=== PATIENT | female | born 1970 | race African-American/Black ===

== ENCOUNTER 2023-11-24 09:03 | Emergency (ER) | payer BC, SELFPAY ==
--- NOTE | ~2023-11-24 | XR_ITS ---
EXAMINATION: XR chest 2V DATE: 11/24/2023 09:54 INDICATION: Right upper and mid back pain. TECHNIQUE: Frontal and lateral views of the chest were obtained. COMPARISON: None. FINDINGS: There is no pneumonia, pleural effusion, or pneumothorax. The heart size is normal. IMPRESSION: 1. No acute cardiopulmonary disease. Reviewed, dictated and finalized at location A.
[2023-11-24 09:18] VITALS: BP 189/107; PULSE 82; RESP 20; TEMP 36.7; O2SAT 98
--- NOTE | 2023-11-24 09:30 | ED.BACK ---
HPI - Back Pain/Injury General Chief Complaint: Back Pain/Injury Stated Complaint: back pain/blood pressure Time Seen by Provider: 11/24/23 09:30 Source: patient, RN notes reviewed and old records reviewed Mode of arrival: ambulatory Limitations: no limitations History of Present Illness HPI Narrative: 53 year old female who presents to [facility] care with complaints of right thoracic back pain for the past 4 days which does radiate around right side to abdomen at times. Patient reports that she thought was gas at first but constant level of pain to right thoracic area which has palpable tenderness. Patient reports that her blood pressure is elevated had previously been on blood pressure medication but is out of medication for awhile. Patient reports that she is from [place] and came to [facility] to take care of mother then she passed. Patient reports that she has been traveling back and forth lately to [place] and back to [facility] since mother passed. Patient reports no known injury to her thoracic back area.Patient states that she has been taking Aleve and Ibuprofen for her discomfort. Patient reports that she has no shortness of breath or any chest pain or palpitations. MD elicited complaint: back pain (thoracic) Onset (ago): day(s) (4) Pain scale (0-10): 9 Location: thoracic spine (right thoracic area) Radiation: abdomen (to right upper abdomen) Treatments prior to arrival: NSAIDS and other (Aleve) Related Data Allergies Allergy/AdvReac Type Severity Reaction Status Date / Time No Known Allergies Allergy Verified 11/24/23 09:18 Review of Systems Review of Systems: CONSTITUTIONAL: Denies fever, chills, or sweats. CARDIOVASCULAR: Denies chest pain, palpitations, or edema. RESPIRATORY: Denies cough or dyspnea. GASTROINTESTINAL: some radiated pain to right upper abdominal area, no nausea, vomiting, or diarrhea. GENITOURINARY: Denies dysuria or hematuria. SKIN: Denies rash or itching. MUSCULOSKELETAL: Reports right upper thoracic back pain. no other joint pain or myalgia. NEUROLOGIC: Denies headache, numbness, or weakness. All systems reviewed & are unremarkable except as noted in HPI and below PMFSH Past Medical History Medical History (Updated 11/25/23 @ 09:25 by Marsha Orourke NP) Hypertension Social History Social History (Updated 11/25/23 @ 09:31 by Marsha L. Sharad, RESEARCH KENNEL SUPERVISOR) Smoking status: Never smoker Alcohol intake: current Alcohol use details: social Substance use type: does not use Gender identity (if verbalized by the patient): Female Comments At time of signature, agree with nursing past medical, surgical, social and family history. There is no relevant family history pertinent to the presenting complaint Exam Narrative: GENERAL: Well-appearing, well-nourished, obese and in no acute distress. HEAD: Normocephalic, atraumatic. EYES: PERRLA and EOMI. NECK: Supple. No lymphadenopathy. CHEST: Clear to auscultation. No respiratory distress. no cough noted SAO2 98% on room air, denies any increased pain with deep breathing HEART: Regular rate and rhythm. Distal pulses palpable and equal, cap refill <3 seconds ABDOMEN: Soft, nontender, nondistended, normal active bowel sounds, no palpable or pulsatile masses. No CVA tenderness MUSCULOSKELETAL: Normal range of motion and strength in all extremities; 5/5 strength with hip flexion and extension, dorsiflexion and extension, knee flexion and extension, plantar flexion and extension. Normal sensation in dermatomal distributions with sensitivity to light touch and pain. No midline back tenderness to palpation. No paraspinal tenderness. Transfers from lying to sitting to standing.Palpable area of tenderness to right thoracic back area under inner scapula area SKIN: Warm, dry, no rash. No ecchymosis, erythema, open wounds to back. NEURO: No focal deficits. Alert and oriented x3. Reflexes intact. Normal gait. PSYCH: Normal mood and affect Course Cour
== END 2023-11-24 10:36 | disposition home or self-care (01) ==
PROVIDERS: Emergency Provider Registered Nurse
DX: I10 Essential (primary) hypertension (principal); M54.6 Pain in thoracic spine
CPT/HCPCS: 71046; 99203; G0463

== ENCOUNTER 2024-02-08 14:02 | Emergency (ER) | payer BC, SELFPAY ==
[2024-02-08 14:10] VITALS: BP 159/80; PULSE 93; RESP 22; TEMP 36.7; O2SAT 98
[2024-02-08 14:49] LABS: EDUAAPPEAR Clear; EDUABILI 1+ (Negative); EDUABLOOD Negative (Negative); EDUACOLOR1 Dark; EDUAGLUCOSE Negative (Negative); EDUAKETONE 2+ (Negative); EDUALEUKO Negative (Negative); EDUANITRATE Negative (Negative); EDUAPROTEIN Negative (Negative); EDUAUROBILI 0.2
--- NOTE | 2024-02-08 15:08 | ED.GENADULT ---
HPI - General Adult General Chief complaint: Urogenital-Female Stated complaint: Urinary /abdominal pain Time Seen by Provider: 02/08/24 15:14 Source: patient, RN notes reviewed and old records reviewed Mode of arrival: ambulatory Limitations: no limitations History of Present Illness HPI narrative: 53-year-old female to Express Care with complaint of dark urine intermittently over the past 2 days. Patient also endorsing upper abdominal cramping. Patient denies abdominal pain, nausea, vomiting, flank pain, urinary frequency, urgency, incontinence, dysuria, bowel changes. patient states that her cycles are irregular as she is premenopausal. Patient hypertensive and tachypneic in triage. Endorses history of hypertension, states she has visiting from out of state due to her mother's recent passing. Patient states that she is out of her hypertension medications, requesting refill of possible. patient resting comfortably in exam room in no acute distress. Respirations even and nonlabored. Patient able to tolerate fluids by mouth. Related Data Allergies Allergy/AdvReac Type Severity Reaction Status Date / Time No Known Allergies Allergy Verified 02/08/24 14:46 Review of Systems Review of Systems: All systems reviewed & are unremarkable except as noted in HPI and below Constitutional: Constitutional: Reports no additional constitutional complaints Eyes: Eyes: Reports no additional eye complaints ENT: Reports system reviewed and no additional complaints, except as documented Cardiovascular: Cardiovascular: Reports no additional cardiovascular complaints, Denies chest pain and Denies dyspnea Respiratory: Respiratory: Reports no additional respiratory complaints, Denies cough and Denies dyspnea Gastrointestinal: Gastrointestinal: Denies abdominal pain, Reports GI cramping ( Upper abdominal), Denies diarrhea, Denies nausea and Denies vomiting Genitourinary: Genitourinary: Reports as per HPI, Reports abnormal menses, Denies urinary frequency, Denies post void dribbling, Denies nocturia, Denies dysuria, Denies flank pain, Denies urinary incontinence, Denies urinary hesitancy and Denies urinary urgency Musculoskeletal: Musculoskeletal: Reports no additional musculoskeletal complaints Neurologic: Reports system reviewed and no additional complaints, except as documented Psychiatric: Psychiatric: Reports no additional psychiatric complaints [facility] Past Medical History Medical History Hypertension Social History Social History Smoking status: Never smoker Alcohol intake: current Alcohol use details: social Substance use type: does not use Gender identity (if verbalized by the patient): Female Comments At the time of my signature, I reviewed and agree with the nursing past medical, surgical, social, and family history. There is no relevant family history pertinent to the patient complaint. Exam Const: General: cooperative, healthy appearing, comfortable, no acute distress, alert and well nourished Nutritional Appearance: well nourished Orientation/consciousness: patient oriented x3 Limitations: no limitations HENMT: Head: normal to inspection Ears: external ears normal Face/Nose/Sinus: Normal external nose present, Normal nares present, normal facial exam, No erythema and No edema Face and sinus: normal facial exam, no erythema and no edema Mouth: Yes Normal oral and palatal mucosa present Eyes: General: appearance normal, both eyes and all related structures Neck: Neck: normal visual inspection, full ROM and no meningeal signs Lymphatic: no lymphadenopathy noted and no lymphedema noted Chest: Chest palpation & inspection: normal inspection of the chest Resp: Effort & Inspection: normal respiratory effort and able to speak in complete sentences Auscultation: clear to auscultation bilaterally Cardio: Jugular venous distension: no JVD Rate: regular rate Rhythm: regular rhythm Back/Spine/Pelvis: Cervical Spine: cervical ROM normal Skin: General skin exam: normal color, no rashes or lesions noted and turgor normal Neuro: General: patient oriented x3, gait normal, moves all extremities and no meningeal signs Speech: normal speech Gait exam (Neuro): Normal gait present Extrem: General: normal to inspection, full ROM and capillary refill normal Psych: Appearance: grossly normal and well kempt Course Course Emergency Course: Some parts of this dictation were generated by voice recognition software and may contain typographical and/or grammatical inaccuracies. Level of Care: Express Care Visit Vital Signs Vital signs: Vital Signs Temperature 36.7 C 02/08/24 14:10 Pulse Rate 93 02/08/24 14:10 Respiratory Rate 22 H 02/08/24 14:10 Blood Pressure 159/80 H 02/08/24 14:10 Pulse Oximetry 98 02/08/24 14:10 Oxygen Delivery Room Air 02/08/24 14:10 Temperature 36.7 C 02/08/24 14:10 Pulse Rate 93 02/08/24 14:10 Respiratory Rate 22 H 02/08/24 14:10 Blood Pressure 159/80 H 02/08/24 14:10 Pulse Oximetry 98 02/08/24 14:10 Oxygen Delivery Room Air 02/08/24 14:10 reviewed Medical Decision Making MDM Narrative Medical decision making narrative: 53-year-old female to Express Care with complaint of dark urine intermittently over the past 2 days. Patient also endorsing upper abdominal cramping. Patient denies abdominal pain, nausea, vomiting, flank pain, urinary frequency, urgency, incontinence, dysuria, bowel changes. patient states that her cycles are irregular as she is premenopausal. Patient hypertensive and tachypneic in triage. Endorses history of hypertension, states she has visiting from out of state due to her mother's recent passing. Patient states that she is out of her hypertension medications, requesting refill of possible. patient resting comfortably in exam room in no acute distress. Respirations even and nonlabored. Patient able to tolerate fluids by mouth. Patient exam unremarkable. Urine negative in clinic. Culture sent. Patient advised to follow-up with PCP upon arrival back home Patient is sitting comfortably in exam room nontoxic in appearance. Patient appropriate for outpatient treatment and follow-up. Discharge instructions reviewed with patient, as well as provided in writing per nursing staff. The instructions also include specific and strict return/GO TO THE ER as well as f/u information. All questions have been answered, and the patient deny any further questions with discharge and discharge plan. Some parts of this dictation were generated by voice recognition software and may contain typographical and/or grammatical inaccuracies. Vital Signs Vital Signs: Vital Signs Temperature 36.7 C 02/08/24 14:10 Pulse Rate 93 02/08/24 14:10 Respiratory Rate 22 H 02/08/24 14:10 Blood Pressure 159/80 H 02/08/24 14:10 Pulse Oximetry 98 02/08/24 14:10 Oxygen Delivery Room Air 02/08/24 14:10 Temperature 36.7 C 02/08/24 14:10 Pulse Rate 93 02/08/24 14:10 Respiratory Rate 22 H 02/08/24 14:10 Blood Pressure 159/80 H 02/08/24 14:10 Pulse Oximetry 98 02/08/24 14:10 Oxygen Delivery Room Air 02/08/24 14:10 Lab Data Labs: Lab Results 02/08/24 Range/Units 14:40 POC Urine Color Dark POC Urine Clarity Clear POC Urine pH 6.0 POC Ur Specif [place] 1.030 POC Urine Protein Negative (Negative) POC Ur Glucose (UA) Negative (Negative) POC Urine Ketones 2+ (Negative) POC Urine Blood Negative (Negative) POC Urine Nitrite Negative (Negative) POC Urine Bilirubin 1+ (Negative) POC Urine Urobilinogen 0.2 POC U Leukocyte Esteras Negative (Negative) Discharge Plan Discharge Clinical Impression: Dark urine Patient Disposition: Home, Self-Care Condition: Stable Prescriptions: New hydrochlorothiazide 12.5 mg tablet 12.5 mg PO DAILY Qty: 30 1RF Follow-up/Referrals: PHYSICIAN,SPORTS EQUIPMENT RACKER [Primary Care Provider] -
== END 2024-02-08 15:30 | disposition home or self-care (01) ==
PROVIDERS: Emergency Provider Nurse Practitioner Family
DX: R82.998 Other abnormal findings in urine (principal); I10 Essential (primary) hypertension
CPT/HCPCS: 81003; 87086; 99213; G0463

== ENCOUNTER 2025-04-10 13:13 | Emergency (ER) | payer BC, SELFPAY ==
--- NOTE | ~2025-04-10 | XR_ITS ---
EXAMINATION: XR chest 2V 04/10/2025 16:41 INDICATION: Chest pain and hypertension PROCEDURE: 2 view chest COMPARISON: 11/24/2023 FINDINGS: The lungs are clear. The cardiomediastinal silhouette is within normal limits. There are no pleural effusions. There is no pneumothorax suspected. IMPRESSION: 1: NO ACUTE CARDIOPULMONARY DISEASE. Reviewed, dictated and finalized at location O. ING SHOW PRODUCER
--- OUTSIDE RECORDS SUMMARY | 2025-04-10 13:34 | XMS_ITS | Clinical Summary ---
Author Organization [facility] Address [address] [place] [address] Care Team Providers Care Rn Disease Management Name Role Phone Unknown, Notinfile Primary Care Provider Unavail able Allergies Active Allergy Reactions Criticality Noted Date Comments Hydromorphone Nausea & Vomiting Low 11/23/2023 Hydrocodone-Acetaminophen Nausea & Vomiting Low Medications hydroCHLOROthiaz villa 12.5 mg tablet Take 1 tablet (12.5 mg total) by mouth daily 30 tablet 10/03/2024 Active Social History Tobacco Use Types Packs/Day Years Used Date Smoking Tobacco: Never Assessed Personal Safety Answer Date Recorded Have you ever been in or are you currently in a harmful physical or emotional relationship or is someone making you feel afraid or unsafe? Denies 10/03/2024 Comments No Sex and Gender Information Value Date Recorded Sex Assigned at Not on file Legal Sex Female 5:14 PM SNAGGER Gender Identity Not on file Sexual Orientation Not on file Last Filed Vital Signs Vital Sign Reading Time Taken Comments Blood Pressure 155/96 10/03/2024 10:54 AM CDT Pulse 80 10/03/2024 10:54 AM CDT Temperature 36.7 C (98 F) 10/03/2024 8:25 AM CDT Respiratory Rate 18 10/03/2024 8:25 AM CDT Oxygen Saturation 100% 10/03/2024 8:25 AM CDT Inhaled Oxygen Concentration - - Weight 158.8 kg (350 lb) 11/23/2023 10:24 PM CDT Height 165.1 cm (5' 5) 11/23/2023 10:24 PM CDT Body Mass Index 58.24 11/23/2023 10:24 PM CDT Plan of Treatment Health Maintenance Due Date Last Done Comments Breast Cancer Screening-Mammogram 1972 Cervical Cancer Screening 1972 Colon Cancer Screening-Colonoscopy 1972 Depression Screening 1972 Hepatitis C Screening 1972 DTaP/Tdap/Td Vaccine (1 - Tdap) 1983 Hepatitis B Screening 1990 Regular Well Visit/Exam 18-64 1990 Zoster Vaccine (1 of 2) 2022 Influenza Vaccine (#1) 2024 Pneumococcal vaccine <65 Aged Out No longer eligible based on patient's age to complete this topic Insurance Group-IB OOS Care Teams Rn Disease Management Relationship Specialty Start Date End Date Unknown, Notinfile PCP - General 11/24/23
[2025-04-10 13:43] VITALS: BP 160/114; PULSE 99; RESP 17; TEMP 36.5; O2SAT 96
[2025-04-10 15:10] VITALS: BP 140/87; PULSE 87; RESP 18; TEMP 36.6; O2SAT 100
--- NOTE | 2025-04-10 16:03 | ED.RECABL ---
HPI - Recheck/Abnormal Lab/Rx General Chief Complaint: Recheck/Abnormal Lab/Rx Stated Complaint: blood pressure medication refill no pcp Time Seen by Provider: 04/10/25 16:03 Source: patient Mode of arrival: ambulatory Limitations: no limitations History of Present Illness HPI narrative: Patient is a 55 y/o female who presents to the ED with c/o HTN. Patient recently moved here from [place]. States her insurance has lapsed and she does not currently have a PCP. States she has run out of her antihypertensive medications and would like a refill. Takes hydrochlorothiazide 12.5mg once daily. Reports she has been having intermittent chest pain into L shoulder for the past 4-5 months. Denies current pain. Denies hx of HLD, DM, smoking, FHx of heart disease. Denies SOLIS, dizziness, lightheadedness, blurry vision, SOB. Related Data Allergies Allergy/AdvReac Type Severity Reaction Status Date / Time No Known Allergies Allergy Verified 02/08/24 14:46 Review of Systems Review of Systems: All systems reviewed & are unremarkable except as noted in HPI. All systems reviewed & are unremarkable except as noted in HPI and below PMFSH Past Medical History Medical History Hypertension Social History Social History Smoking status: Never smoker Alcohol intake: current Alcohol use details: social Substance use type: does not use Gender identity (if verbalized by the patient): Female Exam Narrative: GENERAL: Well appearing, morbidly obese with BMI 61.8, non-toxic, in no acute distress. HEAD: Normocephalic, atraumatic. RESPIRATORY: Airway patent, respirations nonlabored. Clear to auscultation bilaterally, no rales, rhonchi, wheezing. CARDIOVASCULAR: Regular rate and rhythm without murmurs, rubs, or gallops. MUSCULOSKELETAL: Moves all extremities. No gross deformities. SKIN: Warm, dry, normal color. NEURO: A&O X3. Speech clear. Cranial nerves II-XII grossly intact. Steady gait. No ataxic movements. PSYCHIATRIC: Appropriate mood and affect. Normal interaction. Course Vital Signs Vital signs: Vital Signs Temperature 97.7 F 04/10/25 13:43 Pulse Rate 99 04/10/25 13:43 Respiratory Rate 17 04/10/25 13:43 Blood Pressure 160/114 H 04/10/25 13:43 Pulse Oximetry 96 04/10/25 13:43 Oxygen Delivery Room Air 04/10/25 13:43 Temperature 98.0 F 04/10/25 17:13 Pulse Rate 83 04/10/25 17:13 Respiratory Rate 30 H 04/10/25 17:13 Blood Pressure 135/90 04/10/25 17:13 Pulse Oximetry 100 04/10/25 17:13 Oxygen Delivery Room Air 04/10/25 13:43 MDM MDM Narrative Medical decision making narrative: MSE by SAM in triage Care resumed by myself BP here has normalized without intervention. Will refill patient's hydrochlorothiazide that she has previously been on. Advised to monitor blood pressures at home and keep recording of this. Given list of PCPs for follow-up. Advised she will need to follow-up with PCP for continued medication refills. Patient denies current chest pain, however did report intermittent chest pain recently. Cardiac workup was unremarkable. EKG without concerning ischemic changes. Troponin within normal range. Chest x-ray is clear. Remainder basic laboratory studies are otherwise unremarkable. Heart score is 2. Safe for discharge home. Patient given strict return precautions. She is in agreement with plan. Feels comfortable going home. Discharged in stable condition Differential Diagnosis Differential Diagnosis: acs, htn, electrolyte derangement, medication refill Medical Records I have reviewed the following patient records and this information was taken into consideration when formulating the assessment and plan.: previous labs, previous ER visits, previous hospitalizations and previous clinic visits Lab Data [facility] Lab Attestation statement: I personally reviewed the patient's lab results. 04/10/25 16:26 04/10/25 16:26 Labs: Lab Results 04/10/25 Range/Units 16:26 WBC 8.7 (4.5-10.0) K/mm3 RBC 5.42 H (4.2-5.4) M/mm3 Hgb 12.8 (12.0-15.0) g/dL Hct 42.4 (37.0-47.0) % MCV 78.2 L (80-100) fl MCH 23.6 L (26-34) pg MCHC 30.2 L (32-36) g/dl RDW 18.6 H (11.5-14.5) % Plt Count 365 (150-375) k/mm3 MPV 9.5 (7.4-10.4) fl Immature Gran % (Auto) 0.3 (0-0.5) % Neut % (Auto) 43.1 L (45.5-73.1) % Lymph % (Auto) 46.2 H (18.3-44.2) % Kimble % (Auto) 5.9 (2.6-8.5) % Eos % (Auto) 3.7 (0-4.4) % Baso % (Auto) 0.8 (0.2-1.2) % Lymph # (Auto) 4.01 H (0.9-3.2) K/mm3 Kimble # (Auto) 0.5 (0.1-0.6) K/mm3 Eos # (Auto) 0.3 (0-0.3) K/mm3 Baso # (Auto) 0.1 (0.0-0.1) K/mm3 Abs Immat Gran (auto) 0.03 (0.00-0.031) K/mm3 Absolute Neuts (auto) 3.7 (1.3-6.7) K/mm3 Absolute Nucleated RBC 0.000 (0.0-0.012) K/mm3 Nucleated RBC % 0.0 (0.0-0.2) % PT 12.9 (11.1-14.7) Seconds INR 1.0 APTT 26.0 (22.3-36.8) Seconds Sodium 141 (137-145) mmol/L Potassium 3.8 (3.4-5.0) mmol/L Chloride 104 (98-107) mmol/L Carbon Dioxide 32 H (22-30) mmol/L Anion Gap 5 (4-12) mmol/L BUN 11 (7-17) mg/dL Creatinine 0.90 (0.7-1.0) mg/dL Estim Creat Clear Calc 102 ml/min Estimated GFR > 60 (59 - ) Glucose 95 (65-110) mg/dL Calcium 9.7 (8.4-10.2) mg/dL Total Bilirubin 0.2 (0.2-1.3) mg/dL AST 25 (14-36) U/L ALT 29 (6-35) U/L Alkaline Phosphatase 98 (38-126) U/L Troponin I 0.013 (0.000-0.034) ng/mL Total Protein 8.1 (6.3-8.2) g/dL Albumin 4.3 (3.5-5.1) g/dL Imaging Data Attestation: I personally reviewed and interpreted this imaging study as follows: Radiologist's impression: ITS Impressions Chest X-Ray 04/10/25 16:50 IMPRESSION: 1: NO ACUTE CARDIOPULMONARY DISEASE. ECG Data EKG #1: Attestation: I personally reviewed and interpreted this ECG as follows: ECG completion date: 04/10/25 ECG completion time: 16:18 normal rate (78), sinus rhythm (With sinus arrhythmia) and no ST changes Discharge Plan Discharge Clinical Impression: Encounter for medication refill, Atypical chest pain Hypertension Qualifiers: Hypertension type: unspecified Qualified Code(s): I10 - Essential (primary) hypertension Patient Disposition: Home Condition: Stable Instructions: Antibiotic Form, Chest Pain (ED), Chronic Hypertension (ED) Additional Instructions: Take blood pressure medication daily as prescribed. Monitor blood pressures at home and keep recording of numbers. Follow-up closely with primary care doctor for further evaluation. Return to the ED if you experience worsening or severe chest pain, difficulty breathing, unable to keep down food or drink, pain/swelling in your legs, fevers, or any other symptoms of concern. Patient Language: Malawian Prescriptions: New hydrochlorothiazide 12.5 mg tablet 12.5 mg PO DAILY Qty: 30 0RF No Action hydrochlorothiazide 12.5 mg tablet 12.5 mg PO DAILY Qty: 30 1RF Follow-up/Referrals: PHYSICIAN,MATERIALS SPECIALIST [Primary Care Provider, Internal Medicine] Forest Garcia MD [Physician, Family Practice] Time of Disposition: 18:21 Quality HEART score for chest pain patients History: slightly suspicious ECG: normal Age: > 45 and < 65 years Risk factors: 1 or 2 risk factors Troponin: < or = to 1x normal limit Heart score: 2
--- NOTE | 2025-04-10 16:07 | ECG_ITS ---
Test Date: 2025-04-10 16:18:21 Measurements Intervals [place] Rate: 78 P: 49 TN: 145 QRS: -10 QRSD: 91 T: 33 QT: 374 QTc: 426 Interpretive Statements SINUS RHYTHM WITH SINUS ARRHYTHMIA DELAYED PRECORDIAL R/S TRANSITION BASELINE ARTIFACT- I, II, III, AVR, AVL, AVF, V4 BORDERLINE ECG No previous ECG available for comparison Electronically Signed On 04-10-2025 19:37:55 [employer]UTCH MECH[employer]IC by Urban Mcelroy D.O.
[2025-04-10 16:36] LABS: Hematocrit 42.4 % (37.0-47.0); Hemoglobin 12.8 g/dL (12.0-15.0); Immature Granulocyte Percent A 0.3 % (0-0.5); Lymphocytes Absolute Auto 4.01 K/mm3 (0.9-3.2); Mean Corpuscular HGB Conc 30.2 g/dl (32-36); Mean Corpuscular Hemoglobin 23.6 pg (26-34); Mean Corpuscular Volume 78.2 fl (80-100); Nucleated Red Blood Cells Absolute Auto 0.000 K/mm3 (0.0-0.012); Nucleated Red Blood Cells Perc 0.0 % (0.0-0.2); Platelet Count Result 365 k/mm3 (150-375); Red Blood Count 5.42 M/mm3 (4.2-5.4); White Blood Count 8.7 K/mm3 (4.5-10.0)
[2025-04-10 16:55] LABS: Alanine Aminotransferase 29 U/L (6-35); Albumin Level 4.3 g/dL (3.5-5.1); Alkaline Phosphatase 98 U/L (38-126); Anion Gap 5 mmol/L (4-12); Aspartate Amino Transferase 25 U/L (14-36); Bilirubin,Total 0.2 mg/dL (0.2-1.3); Blood Urea Nitrogen 11 mg/dL (7-17); Calcium 9.7 mg/dL (8.4-10.2); Carbon Dioxide 32 mmol/L (22-30); Chloride 104 mmol/L (98-107); Estimated CRCL calculation 102 ml/min; Estimated Glomerular Filt Rate > 60; Glucose 95 mg/dL (65-110); Potassium 3.8 mmol/L (3.4-5.0); Sodium 141 mmol/L (137-145); Total Protein 8.1 g/dL (6.3-8.2)
[2025-04-10 17:08] LABS: Troponin I 0.013 ng/mL (0.000-0.034)
[2025-04-10 17:12] LABS: INR 1.0; Partial Thromboplastin Time 26.0 Seconds (22.3-36.8); Prothrombin Time 12.9 Seconds (11.1-14.7)
[2025-04-10 17:13] VITALS: BP 135/90; PULSE 83; RESP 30; TEMP 36.7; O2SAT 100
== END 2025-04-10 18:32 | disposition home or self-care (01) ==
PROVIDERS: Emergency Provider Physician Assistant
DX: I10 Essential (primary) hypertension (principal); R07.89 Other chest pain; Z76.0 Encounter for issue of repeat prescription
CPT/HCPCS: 36415; 71046; 80053; 84484; 85025; 85610; 85730; 93005; 99284